=== PATIENT | female | born 1990 | race Hispanic/Latino ===

== ENCOUNTER 2019-01-15 10:05 | Emergency (ER) | payer SELFPAY ==
[~2019-01-15] VITALS: Ht 162.6 cm; Wt 85.9 kg
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
== END 2019-01-15 10:37 | disposition left against medical advice (07) ==
LOC: FSED 10:05
DX: M54.2 Cervicalgia (principal)